=== PATIENT | male | born 1985 | race Caucasian/White ===

== ENCOUNTER → 2019-02-16 | Outpatient (CLI) | payer BC ==
[~2019-02-16] MED LIST: METO50TA2 PO
--- NOTE | 2019-02-16 13:53 | Diagnostic Imaging Report ---
PROCEDURE: MRI lumbar spine. TECHNIQUE: Multiplanar, multisequence MRI of the lumbar spine was performed without contrast. INDICATION: Low back pain and right buttock pain. FINDINGS: The alignment of the lumbar spine is normal. The vertebral body heights are well maintained. There is no spondylolysis or spondylolisthesis. No fractures are identified. There are no marrow signal intensity abnormalities. Conus medullaris is seen at L1 and is normal in appearance. The T12-L1, L1-L2, L2-L3, and L3-L4 discs are all normal in height, signal intensity, and morphology. At L4-L5, there is loss of disc height and signal intensity with some broad-based annular bulging. There is also some facet disease and thickening of the ligamentum flavum. There is mild central spinal stenosis and minimal neuroforaminal encroachment. At L5-S1, there is loss of disc height and signal intensity. There is a right paramedian disc protrusion as well as an extruded and sequestered disc fragment above the level of the disc on the right. This results in encroachment upon the right lateral recess and exiting nerve root. There is moderate right neuroforaminal encroachment. There is minimal left neuroforaminal encroachment. The abdominal aorta is nonaneurysmal. Kidneys are unremarkable. IMPRESSION: Right paramedian disc protrusion at L5-S1. Additionally, there is a focal disc extrusion with sequestered disc fragment above the level of the disc on the right at this level. This results in marked encroachment upon the right lateral recess and exiting nerve root and contributes to some right neuroforaminal encroachment. Mild degenerative disc disease at L4-L5. Dictated by: Dictated on workstation # [id number]
== END ==
LOC: RAD 12:09
PROVIDERS: ATTEND Physician Assistant
DX: M51.27 Other intervertebral disc displacement, lumbosacral region (principal); M51.36 Other intervertebral disc degeneration, lumbar region
CPT/HCPCS: 72148

== ENCOUNTER 2019-09-04 09:47 | Outpatient (RCR) | payer BC | END 2019-12-03 | disposition home or self-care (01) | LOC: CARD 09:47 | PROVIDERS: ATTEND Physician Assistant | DX: I49.1 Atrial premature depolarization (principal); I49.3 Ventricular premature depolarization; R07.9 Chest pain, unspecified; R00.2 Palpitations; R06.02 Shortness of breath; R00.0 Tachycardia, unspecified; K21.9 Gastro-esophageal reflux disease without esophagitis; I10 Essential (primary) hypertension | CPT/HCPCS: 93225; 93226; 93306 ==

== ENCOUNTER → 2020-09-09 | Outpatient (CLI) | payer BC ==
--- NOTE | 2020-09-09 15:01 | Diagnostic Imaging Report ---
PROCEDURE: MRI lumbar spine. TECHNIQUE: Multiplanar, multisequence MRI of the lumbar spine was performed without contrast. DATE: September 09, 2020. COMPARISON: MRI lumbar spine February 16, 2019. INDICATION: 34-year-old male, low back pain. Right-sided sciatica. FINDINGS: The alignment of the lumbar spine is unremarkable. There is no evidence of a diffuse marrow infiltrating or replacing process. There is no identified focal concerning bone lesion. There is no visualized pars interarticularis defect. The visualized cord and conus medullaris is unremarkable and terminates at the T12-L1 level. There is mild to moderate disc height loss at L5-S1. L1-L2: There is no disc bulge. The facet joints and ligamentum flavum are unremarkable. There is no foraminal narrowing. There is no spinal canal stenosis. L2-L3: There is no disc bulge. The facet joints and ligamentum flavum are unremarkable. There is no foraminal narrowing. There is no spinal canal stenosis. L3-L4: There is no disc bulge. The facet joints and ligamentum flavum are unremarkable. There is no foraminal narrowing. There is no spinal canal stenosis. L4-L5: There is a right paracentral disc protrusion without identified nerve root contact. The facet joints and ligamentum flavum are unremarkable. There is no foraminal narrowing. There is no spinal canal stenosis. L5-S1: There is an annular tear. There is a right paracentral disc extrusion contacting the descending right S1 nerve. The facet joints and ligamentum flavum are unremarkable. There is no foraminal narrowing. There is no spinal canal stenosis. IMPRESSION: 1. L5-S1 annular tear with right paracentral disc extrusion contacting the descending right S1 nerve. 2. L4-L5 right paracentral disc protrusion without nerve root contact, foraminal narrowing or spinal stenosis. 3. These findings are present on prior MRI. The extent of the extruded disc material at L5-S1 superiorly is less prominent, particularly when comparing the T1-weighted sequences. Dictated by: Dictated on workstation # [id number]
== END ==
LOC: RAD 14:00
PROVIDERS: ATTEND Orthopaedic Surgery Orthopaedic Surgery of the Spine
DX: M51.17 Intervertebral disc disorders with radiculopathy, lumbosacral region (principal); M51.26 Other intervertebral disc displacement, lumbar region
CPT/HCPCS: 72148